=== PATIENT | male | born 1995 | race Caucasian/White ===

== ENCOUNTER 2017-01-27 20:30 | Emergency (ER) | payer BC, OTHER ==
[2017-01-27] MEDS ORDERED: KETOROLAC TROMETHAMINE 30 MG/ML VIAL ONE (21:22)
[2017-01-27] MEDS ORDERED: ONDANSETRON HCL 4 MG/2 ML VIAL ONE (21:22)
--- NOTE | 2017-01-27 22:21 | RADIOLOGY REPORT ---
HISTORY: Fever, cough, chills COMPARISON: None. FINDINGS: 2 views of the chest obtained. There is no consolidation. There is no pleural effusion. There is no pneumothorax. The cardiomediastinal silhouette is normal. There is no abnormality of the pulmonar y vessels. There is no focal lung parenchymal nodule. There is no bone lesion. IMPRESSION: Normal chest x-ray. Final Electronic Signature: This report was electronically signed by Mango Johnson MD on 01/27/2017 1 0:19 PM. [email or web address] /
[2017-01-27] MEDS ORDERED: METOCLOPRAMIDE HCL 10 MG/2 ML VIAL ONE (22:22)
[2017-01-27] MEDS ORDERED: ACETAMINOPHEN 325 MG TABLET PO ONE (22:30)
[2017-01-27] MEDS ORDERED: AZITHROMYCIN 250 MG TABLET PO ONE (22:51)
--- NOTE | 2017-01-27 22:51 | ER NURSING DOCUMENTATION ---
Nurse's Notes [facility] Name:Mukul Hackett Age:21 yrs Sex:Male :1995 Arrival Date:01/27/2017 Time:20:30 Bed3 Private MD:No PCP, Identified Diagnosis:Pneumonia Viral Presentation: 01/27 20:42 Acuity: ZACH 3 rh 21:00 Presenting complaint: Patient states: X1 week patient has had fever, nausea, vomiting, rh chills, cough and runny nose. Transition of care: Home. 21:00 Method Of Arrival: Private Vehicle rh Triage Assessment: 21:02 General: Appears in no apparent distress, Behavior is cooperative. General: Reports rh chills for fever for fatigue for >3 days. Pain: Complains of pain in GENERALIZED. EENT: Oral mucosa is dry. Neuro: Level of Consciousness is awake, alert, obeys commands, Oriented to person, place, time, event. Cardiovascular: Capillary refill < 3 seconds Chest pain is denied. Respiratory: Airway is patent Respiratory effort is even, unlabored, Respiratory pattern is regular, symmetrical, Reports cough that is Denies shortness of breath. GI: Abdomen is non- distended Reports nausea, vomiting, Denies diarrhea. : No deficits noted. Derm: Skin is intact, is healthy with good turgor, Skin is pink, warm & dry. Historical: - Allergies: No known drug Allergies; - Home Meds: 1. Unknown bipolar med - PMHx: BIPOLAR DISORDER; - PSHx: None; - Tetanus: < 10 years. - Ebola Screening: : Patient negative for fever greater than or equal to 101.5 degrees Fahrenheit, and additional compatible Ebola Virus Disease symptoms. - Immunization history: Flu Vaccine < 1 year. - Social history: Smoking status: Patient uses tobacco products, current every day smoker. Screenin:05 Infectious Disease Risk None. Abuse screen: Denies threats or abuse. Denies injuries rh from another. Nutritional screening: No deficits noted. Assessment: 21:05 See Triage Assessment done by same RN. rh Vital Signs: 21:00 BP 135 / 72; Pulse 81; Resp 16; Temp 100.5(O); Pulse Ox 94% on R/A; Weight 70.31 kg; rh Height 5 ft. 8 in. (172.72 cm); Pain 10/10; 22:20 BP 125 / 65; Pulse 60; Resp 15; Pulse Ox 94% on R/A; Pain 6/10; rh 21:00 Body Mass Index 23.57 (70.31 kg, 172.72 cm) rh ED Course: 20:31 Patient arrived in ED. ma1 20:31 No PCP, Identified is Private Physician. ma1 20:34 Terrence Barrientos MD is Attending Physician. 20:42 Triage completed. rh 20:45 Notified ED Physician of patient's arrival and chief complaint. Dr. Barrientos notified. rh 20:55 Inserted peripheral IV: 18 gauge in right forearm and blood collected. rh 21:00 Sarina Feliciano is Primary Nurse. rh 21:05 Valuables Remains with patient Patient has correct armband on for positive rh identification. Placed in gown. Bed in low position. Call light in reach. Side rails up X 1. Family accompanied patient. 22:10 CXR 2V [id number] In Process Unspecified. EDMS 22:11 Patient moved to radiology. cynthia 22:11 Patient moved back from radiology. cynthia 22:11 CXR 2V [id number] Sent. cynthia 22:16 CXR 2V [id number] In Process Unspecified. EDMS 22:34 Bob Whiteside MD is Referral Physician. 22:34 [facility] is Referral Physician. ed 22:34 [facility] is Referral Physician. ed Administered Medications: 21:00 Drug: NS 0.9% 1000 ml; Route: IV; Rate: bolus; Site: right forearm; rh 22:00 Follow up: IV Status: Completed infusion; IV Intake: 1000ml rh 21:08 Drug: Zofran 4 mg; Route: IVP; Infused Over: 2 mins; Site: right forearm; rh 21:41 Follow up: Response: Nausea is decreased rh 21:09 Drug: Toradol 30 mg; Route: IVP; Site: right forearm; rh 21:41 Follow up: Response: No adverse reaction; Pain is decreased rh 21:18 CANCELLED (Other Intervention Used): Ibuprofen 600 mg PO once rh 21:18 CANCELLED (Other Intervention Used): Tylenol 650 mg PO once rh 22:16 Drug: Reglan 5 mg; Route: IVP; Site: right forearm; rh 22:48 Follow up: Response: Pain is decreased rh 22:16 Drug: NS 0.9% 1000 ml; Route: IV; Rate: bolus; Site: right forearm; rh 22:40 Follow up: IV Status: Completed infusion; IV Intake: 1000ml rh 22:20 Drug: Tylenol 975 mg; Route: PO; rh 22:48 Follow up: Response: Pain is decreased rh 22:40 Drug: azithromycin 500 mg; Route: PO; rh 22:49 Follow up: Response: No adverse reaction rh 22:49 Drug: Zofran 1 tablet; Route: PO; rh 22:49 Follow up: Response: Pharmacy closed - take home med pack rh Intake: 22:00 IV: 1000ml; Total: 1000ml. rh 22:40 IV: 1000ml; Total: 2000ml. Outcome: 22:34 Discharge ordered by MD. ed 22:49 Discharged to home ambulatory, with significant other. rh 22:49 Condition: improved 22:49 Discharge Assessment: Patient awake, alert and oriented x 3. No cognitive and/or functional deficits noted. Patient verbalized understanding of disposition instructions. 22:49 Discharge instructions given to patient, significant other, Instructed on discharge instructions, follow up and referral plans. Demonstrated understanding of instructions, medications, Prescriptions given X 2. 22:49 IV D/Kraig 22:50 Patient left the ED. 01/29 12:45 Discharge F/U Call: Spoke with: patient. other: Name: pt has not had a chance to fill st the abx yet but states he is feeling a little better. Signatures: Dispatcher [employer] Ariadne Castellon RN RN st Meyer, John, MD MD jm Abbott, Sarina Culver Ladan Hudson
--- NOTE | 2017-01-27 22:51 | ER PHYSICIAN DOCUMENTATION ---
Physician Documentation [facility] Name:Mukul Hackett Age:21 yrs Sex:Male :1995 Arrival Date:01/27/2017 Time:20:30 Bed3 Private MD:No PCP, Identified ED Terrence Barrientos Disposition: 01/27/17 22:34 Discharged to Home/Self Care. Impression: Pneumonia Viral. - Condition is Good. - Discharge Instructions: PNEUMONIA (Adult). - Prescriptions for Zithromax Z- Chip 250 mg Oral - take 1 tablet by ORAL route as directed for 4 days Day 2, 3, 4 , 5 take one (1) tablet once daily.; 4 tablet. Zofran 4 mg Oral Tablet - take 1-2 tablet by ORAL route every 4-6 hours As needed; 10 tablet. - Medical Reconciliation form form. - Follow up: Bob Whiteside MD; When: 2 - 3 days; Reason: Continuance of care. Follow up: [facility]; When: 2 - 3 days; Reason: Continuance of care. Follow up: [facility]; When: 2 - 3 days; Reason: Continuance of care. - Problem is new. - Symptoms have improved. HPI: 01/27 23:40 This 21 yrs old Male presents to ER via Private Vehicle with complaints of jm Nausea/Vomiting, Headache. 23:40 The patient presents to the emergency department with nausea, with vomiting, without jm any complaints of abdominal pain. Onset: The symptom(s)/episode began/occurred 2 week(s) ago. Possible causes: unknown. Associated signs and symptoms: Pertinent positives: cough, vomiting, myalgias. , Pertinent negatives: no neck pain. . Severity of symptoms: in the emergency department the symptoms are unchanged. The patient has not recently seen a physician. Pt has been sick for 2 weeks with cough, fever, mild BRADSHAW's, and body aches. . Historical: - Allergies: No known drug Allergies; - Home Meds: 1. Unknown bipolar med - PMHx: BIPOLAR DISORDER; - PSHx: None; - Tetanus: < 10 years. - Ebola Screening: : Patient negative for fever greater than or equal to 101.5 degrees Fahrenheit, and additional compatible Ebola Virus Disease symptoms. - Immunization history: Flu Vaccine < 1 year. - Social history: Smoking status: Patient uses tobacco products, current every day smoker. ROS: 23:40 Constitutional: Positive for body aches, chills, fatigue, fever, malaise. 23:40 ENT: Negative for rhinorrhea, sinus congestion, sinus pain, sore throat. 23:40 Neck: Negative for pain with movement, pain at rest, stiffness, swollen nodes, tenderness. 23:40 Cardiovascular: Negative for chest pain, palpitations. 23:40 Respiratory: Positive for cough, Negative for shortness of breath. 23:40 Abdomen/GI: Positive for nausea, vomiting. 23:40 Neuro: Positive for headache. Exam: 23:40 Constitutional: The patient appears alert, awake, comfortable. 23:40 ENT: Mouth: is normal, Posterior pharynx: is normal. 23:40 Neck: Thyroid: appears normal, ROM/movement: is normal, Lymph nodes: no appreciated lymphadenopathy. 23:40 Cardiovascular: Rate: normal, Rhythm: regular. 23:40 Respiratory: the patient does not display signs of respiratory distress, Respirations: normal. 23:40 Abdomen/GI: Bowel sounds: normal, Palpation: abdomen is soft and non-tender. Vital Signs: 21:00 BP 135 / 72; Pulse 81; Resp 16; Temp 100.5(O); Pulse Ox 94% on R/A; Weight 70.31 kg; rh Height 5 ft. 8 in. (172.72 cm); Pain 10/10; 22:20 BP 125 / 65; Pulse 60; Resp 15; Pulse Ox 94% on R/A; Pain 6/10; rh 21:00 Body Mass Index 23.57 (70.31 kg, 172.72 cm) rh MDM: 20:34 Patient medically screened. 01/28 00:07 Differential diagnosis: gastroenteritis, walking PNA. Data reviewed: vital signs, nurses notes, and as a result, I will discharge patient. Counseling: I had a detailed discussion with the patient and/or guardian regarding: the historical points, exam findings, and any diagnostic results supporting the discharge/admit diagnosis, lab results, radiology results, the need for outpatient follow up, with the patient's primary care provider. Medication response: The patient's symptoms have improved, acetaminophen administration has lowered the patient's temperature, 98.5 on DC, reglan. 00:17 ED course: I don't have a great reason for pt's sx but they have been going on long jm enough to warrant a round of antibiotics. Pt will go on Zpack. . 01/27 21:06 Order name: INFLUENZA A/B; Complete Time: 21:08 EDHI 01/27 22:10 Order name: CXR 2V [id number] EDHI 01/27 22:22 Order name: CXR 2V [id number] EDHI 01/27 21:06 Order name: Iv Saline Lock; Complete Time: 21:06 Dispensed Medications: 01/27 21:00 Drug: NS 0.9% 1000 ml; Route: IV; Rate: bolus; Site: right forearm; rh 22:00 Follow up: IV Status: Completed infusion; IV Intake: 1000ml rh 21:08 Drug: Zofran 4 mg; Route: IVP; Infused Over: 2 mins; Site: right forearm; rh 21:41 Follow up: Response: Nausea is decreased rh 21:09 Drug: Toradol 30 mg; Route: IVP; Site: right forearm; rh 21:41 Follow up: Response: No adverse reaction; Pain is decreased rh 21:18 CANCELLED (Other Intervention Used): Ibuprofen 600 mg PO once rh 21:18 CANCELLED (Other Intervention Used): Tylenol 650 mg PO once rh 22:16 Drug: Reglan 5 mg; Route: IVP; Site: right forearm; rh 22:48 Follow up: Response: Pain is decreased rh 22:16 Drug: NS 0.9% 1000 ml; Route: IV; Rate: bolus; Site: right forearm; rh 22:40 Follow up: IV Status: Completed infusion; IV Intake: 1000ml rh 22:20 Drug: Tylenol 975 mg; Route: PO; rh 22:48 Follow up: Response: Pain is decreased rh 22:40 Drug: azithromycin 500 mg; Route: PO; rh 22:49 Follow up: Response: No adverse reaction rh 22:49 Drug: Zofran 1 tablet; Route: PO; rh 22:49 Follow up: Response: Pharmacy closed - take home med pack rh Signatures: Terrence Barrientos MD MD jm Hofsess, Rachel
[2017-01-27] MEDS ORDERED: ONDANSETRON ODT PREPAC 4 MG TAB.RAPDIS PO ONE (22:52)
== END 2017-01-27 22:51 | disposition home or self-care (01) ==
LOC: ER 20:30
DX: J18.9 Pneumonia, unspecified organism (principal); R11.2 Nausea with vomiting, unspecified; R51 Headache; R50.9 Fever, unspecified; R53.83 Other fatigue; R53.81 Other malaise; M79.1 Myalgia; F17.210 Nicotine dependence, cigarettes, uncomplicated
CPT/HCPCS: 71020; 87449; 96361; 96374; 96375; 99284; J1885; J2405; J2765; Q0144